=== PATIENT | female | born 1970 | race Caucasian/White ===

== ENCOUNTER → 2023-10-11 12:55 | Outpatient (REF) | payer BC, SELFPAY | LOC: WDC 12:55 | PROVIDERS: ATTENDING PHYSICIAN Obstetrics & Gynecology; FAMILY PHYSICIAN Internal Medicine | DX: Z12.31 Encounter for screening mammogram for malignant neoplasm of breast (principal) | CPT/HCPCS: 77063; 77067 ==

== ENCOUNTER → 2023-11-22 09:12 | Outpatient (REF) | payer BC, SELFPAY | LOC: WDC 09:12 | PROVIDERS: ATTENDING PHYSICIAN Obstetrics & Gynecology; FAMILY PHYSICIAN Internal Medicine | DX: R92.8 Other abnormal and inconclusive findings on diagnostic imaging of breast (principal) | CPT/HCPCS: 76642 ==

== ENCOUNTER → 2024-10-12 08:22 | Outpatient (REF) | payer BC, SELFPAY | LOC: WDC 08:22 | PROVIDERS: ATTENDING PHYSICIAN Obstetrics & Gynecology; FAMILY PHYSICIAN Internal Medicine | DX: Z12.31 Encounter for screening mammogram for malignant neoplasm of breast (principal) | CPT/HCPCS: 77063; 77067 ==

== ENCOUNTER → 2024-10-30 08:43 | Outpatient (REF) | payer BC, SELFPAY | LOC: WDC 08:43 | PROVIDERS: ATTENDING PHYSICIAN Obstetrics & Gynecology; FAMILY PHYSICIAN Internal Medicine | DX: R92.8 Other abnormal and inconclusive findings on diagnostic imaging of breast (principal) | CPT/HCPCS: 76642 ==

== ENCOUNTER → 2024-11-08 06:23 | Outpatient (REF) | payer BC, SELFPAY ==
--- NOTE | 2024-11-08 08:45 | OID.BR.INTR ---
[facility] - Initial
- -
Date of Contact: 11/08/24
Met with patient. Patient given written information on navigator service available at [facility]. Will follow up as needed per protocol.
== END ==
LOC: WDC 06:23
PROVIDERS: ATTENDING PHYSICIAN Obstetrics & Gynecology; FAMILY PHYSICIAN Internal Medicine
DX: N63.13 Unspecified lump in the right breast, lower outer quadrant (principal)
CPT/HCPCS: 19083; 88305; 88341; 88342; 88360; A4648

== ENCOUNTER 2024-11-23 20:31 | Emergency (ER) | payer BC, SELFPAY ==
[2024-11-23 20:32] VITALS: BP 151/92
[2024-11-23 21:04] LABS: Hematocrit 42.0 % (37.0-47.0); Hemoglobin 15.0 g/dL (12.0-16.0); Mean Corp Hgb Conc. 35.7 g/dL (33.0-37.0); Mean Corpuscular Volume 83.7 fL (81.0-99.0); Nucleated Red Blood Cells % 0 %; Red Cell Dist. Width 12.4 % (11.5-14.5)
[2024-11-23 21:12] LABS: ALT (SGPT) 26 U/L (0-35); AST (SGOT) 20 U/L (14-36); Albumin 4.6 g/dl (3.5-5.0); Alkaline Phosphatase 66 U/L (38-126); Blood Urea Nitrogen 21 mg/dl (7-17); Calcium 9.6 mg/dl (8.4-10.2); Carbon Dioxide 24 mmol/L (22-30); Chloride 105 mmol/L (98-107); Glucose 91 mg/dl (70-99); Lipase 83 U/L (23-300); Potassium 4.6 mmol/L (3.5-5.1); Sodium 137 mmol/L (135-145); Total Protein 7.3 g/dl (6.3-8.2); eGFR > 60.00
[2024-11-23 21:25] LABS: Platelet Count 322 10^3/uL (130-400)
[2024-11-24 00:59] VITALS: BP 118/75; BMI 32.3
[2024-11-24] MEDS: PROTONIX IV 40 MG IV (02:03)
[2024-11-24] MEDS: TORADOL 15 MG IV (02:04)
--- NOTE | 2024-11-24 02:59 | ED.GENMED ---
History of Present Illness
General
Chief Complaint: Abdominal Pain
Time Seen by Provider: 11/24/24 00:52
History of Present Illness
History of Present Illness:
54-year-old female without significant past medical history presenting for upper abdominal pain. Patient reports ongoing issue for the past few weeks, with symptoms intermittent. She notes 2 weeks ago she went to [facility], had a CT scan
done of her abdomen, without acute pathology. She was thought at that time to have gastritis. She since called GI and has an appointment on Wednesday. She denies any prior history of gastric issues. Denies any fever. Notes she has been having a
lot of belching. Reports history of , otherwise no abdominal surgeries. Denies any symptoms. She has been taking pantoprazole for her symptoms. Denies additional acute medical complaints
Phy Exam
Physical Exam
Physical Exam:
General: Well-appearing, no clinical signs of dehydration, nontoxic and in no acute distress
HEENT: protecting airway
Neck: appears supple
CV: Normal heart rate, regular rhythm
Resp: No accessory muscle use, no increased work of breathing
Abd: Soft and non-distended, focal tenderness to the epigastric and right upper quadrant without rebound or
Extremities: No deformities, no swelling
Neuro: alert, no focal neurologic deficit
: deferred
Rectal: deferred
Psych: Normal affect
Skin: Intact
Course
Orders/Labs/Results
Orders:
Orders
11/23/24 20:50
Complete Blood Count/With Diff Urgent
Comprehensive Metabolic Panel Urgent
Lipase Urgent
11/24/24 01:43
Ketorolac [Toradol] 15 mg IV NOW STA
Pantoprazole [Protonix IV] 40 mg IV NOW STA
US Abdomen Complete/Upper Urgent
Comment:
Reason For Exam: RUQ pain
Abnormal Lab Results
11/23/24
20:50
WBC 11.9 H 10^3/uL
(4.8-10.8)
Abs Immat Gran (auto) 0.1 H 10^3/uL
(0-0.05)
Absolute Neuts (auto) 8.1 H 10^3/uL
(1.4-6.5)
Absolute Monos (auto) 1.2 H 10^3/uL
(0.1-0.6)
Lymphocytes % 16.8 L %
(20.5-51.1)
Monocytes % 10.2 H %
(1.7-9.3)
BUN 21 H mg/dl
(7-17)
11/23/24 20:50
11/23/24 20:50
Vital Signs
Initial and Last Documented VS:
Initial Vital Signs
Temp Pulse Resp BP Pulse Ox
98.4 F 78 18 151/92 98
11/23/24 20:32 11/23/24 20:32 11/23/24 20:32 11/23/24 20:32 11/23/24 20:32
Last Documented Vital Signs
Temp Pulse Resp BP Pulse Ox
98.4 F 71 16 118/75 99
11/23/24 20:32 11/24/24 00:59 11/24/24 00:59 11/24/24 00:59 11/24/24 03:02
MDM/Problems Addressed
MDM/Problems Addressed:
54-year-old female presenting for abdominal pain and belching. Vital signs are significant for high blood pressure, which resolved without intervention.
On exam patient is resting comfortably, nontoxic. Focal tenderness to the epigastric abdomen and right upper quadrant. Symptoms are consistent with likely gastritis versus pancreatitis versus cholelithiasis versus cholecystitis. No significant
tenderness to the lower abdomen with lower suspicion for bowel pathology such as diverticulitis or appendicitis. Note that she had unremarkable CT scan 2 weeks ago. Will obtain right upper quadrant ultrasound to evaluate gallbladder. Will screen
with laboratory analysis. Will treat with pantoprazole and reassess for improvement
03:30 -patient's labs are unremarkable. Ultrasound without any significant acute pathology. Patient resting comfortably on reassessment. Suspect gastritis as etiology of patient's symptoms. Feel stable for discharge with outpatient follow-up
with GI as scheduled. Return precautions discussed and patient verbalized understanding
*Pulse Oximetry
SaO2: 99
Oxygen Mode of Delivery: Room air
Patient hypoxic: no
*Critical Care Note
Total Time (30-74mins, 75-104mins- exclusive of procedures): Not Applicable
ED Attending Note
-
Portions of this chart may have been created with voice recognition software.� Occasional wrong word or��sound alike� substitutions may have occurred due to the inherent limitations of voice recognition software.
Discharge Plan
Departure
Patient Disposition: Home (Routine Discharge)
Date of Disposition: 11/24/24
Time of Disposition: 03:35
Patient with high blood pressure during this ER visit?: Yes
Condition: Good
Discharge Problem:
Gastritis
Instructions: Gastritis (DC), Duncan diet, BLOOD PRESSURE
Referrals:
Alejandro Urbano MD [Family Provider, Internal Medicine]
Activity Restrictions/Additional Instructions:
You were seen in the emergency department for abdominal pain
You were found to have reassuring laboratory analysis and ultrasound imaging of your gallbladder. We suspect that your symptoms are from inflammation to your stomach. Please maintain your appointment with your GI doctor and adhere to a bland diet.
Please continue to take pantoprazole daily.
Please follow-up closely with your primary care physician.
Return to the emergency department for any worsening of your symptoms, or any development of chest pain, difficulty breathing, abdominal pain with persistent vomiting and inability to tolerate food or liquid by mouth (concern for dehydration),
weakness, headache or confusion, fever greater than 100.4, or any additional symptoms that are concerning to you.
Thank you for choosing [facility].
Interventions
Interventions:
*Risk Screen - Suicide Last Done: 11/23/24 20:32
*General Assessment Last Done: 11/23/24 20:32
*Neglect/Abuse Screening Last Done: 11/23/24 20:32
*ED- Fall Risk Assessment Last Done: 11/23/24 20:32
*ED COVID-19 Vaccine History Last Done: 11/23/24 20:32
OR-Gvjlyq-Xvhhvjddxe Assessment Last Done: 11/24/24 00:59
Discharge Date and Time
Print Language: CZECH
--- NOTE | 2024-11-24 03:00 | EDRN ---
Patient reports feeling much better at this time
--- NOTE | 2024-11-24 03:33 | EDRN ---
Dr. Brito in speaking with patient and going over results
== END 2024-11-24 03:50 | disposition home or self-care (01) ==
LOC: EMR 20:31
PROVIDERS: EMERGENCY PHYSICIAN Student in an Organized Health Care Education/Training Program; FAMILY PHYSICIAN Internal Medicine
DX: K29.70 Gastritis, unspecified, without bleeding (principal); Z79.899 Other long term (current) drug therapy
CPT/HCPCS: 96374; 96375; 99284; 76700; 80053; 83690; 85025